=== PATIENT | male | born 1975 | race Caucasian/White ===

== ENCOUNTER → 2021-03-22 16:18 | Outpatient (BNVA) | payer OTHER, SELFPAY | PROVIDERS: Family Provider Family Medicine; PCP Family Medicine Adult Medicine; Visit Provider Otolaryngology | DX: Z20.822 Contact with and (suspected) exposure to COVID-19 (principal) | CPT/HCPCS: 87635 ==

== ENCOUNTER 2021-03-27 09:53 | Day surgery (SDC) | payer OTHER, SELFPAY ==
[2021-03-26 10:48] VITALS: BMI 26.9
[2021-03-27] VITALS (10 sets, daily range): BP systolic 154–177; BP diastolic 89–107; PULSE 60–72; RESP 13–20; TEMP 36.1–36.6; O2SAT 94–97
[2021-03-27] MEDS: sodium chloride 0.9% 1,000 ML 30 ML IV (10:10)
--- NOTE | 2021-03-27 10:14 | W.PM.OPSUD ---
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
--- NOTE | 2021-03-27 10:26 | ANES.PREANE2 ---
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 Proposed Procedure: Operation Date: 03/27/21 11:25 Proposed Procedures p DIRECT LARYNGOSCOPY WITH BIOPSY 17874 J38.3(Not Applicable) - Colton Mayer MD s Excision Mouth Mass/Lesion Biopsy Mouth Mass/Lesion(Not Applicable) - Colton Mayer MD Was Beta Deya taken within 24 hours: N/A Was Clonidine taken within 24 hours: Yes Last intake: Intake Last Liquid Date 03/26/21 Last Liquid Time 19:30 Last Solid Date 03/26/21 Last Solid Time 19:30 Social: Social History: Tobacco and No alcohol Exam: Pre-Anes Outpt Exam: alert, oriented x 3, clear to auscultation bilaterally and regular rate & rhythm Airway: Submandibular: WNL Cervical ROM: WNL MP: 2 Dentition: Chipped Additional comments: Hoarseness Pulmonary: Pulmonary: COPD CV/HEM: CV/HEM: HTN GI: GI: GERD Anesthetic Plan: ASA status: 2 Anesthesia: General Risk of > 500 ml blood loss (7ml/kg in children): No PFSH Anesthesia PFSH: Medical History Decreased glomerular filtration rate (GFR) Hoarseness, chronic HTN (hypertension) Varicose veins of both lower extremities Social History Alcohol intake: never Marital status: Number of children: 3 Number of grandchildren: 7 Current occupational status: employed Data Anesthesia Cardiac Studies: No Data to Display
--- NOTE | 2021-03-27 13:12 | P.OP_ITS ---
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 Narrow bite opening as well. Used mouthguard to protect this remaining dentition. Laryngoscope was too large to fit with his bite opening and his teeth condition. Therefore used a straight blade laryngoscope. This allowed me to see the mass with significant cricoid pressure. Multiple biopsies successfully taken. Other attempts with the glide scope were not successful. Condition: stable Disposition: PACU Brief History: 45-year-old male patient who has been a heavy smoker for many years. Has been hoarse for many months. Flexible laryngoscopy performed in the office revealed a large spherical mass emanating from the anterior half of the left true vocal cord. The patient is brought to the operating room at this time to undergo biopsy of this mass for diagnostic purposes. The procedure risks and complications were explained in detail. These included bleeding infection numbness scarring swelling bruising voice change need for additional treatment potential damage to his poor dentition including loss of tooth or cracked tooth or teeth. More serious risk such as heart attack or stroke or not surviving the surgery were also discussed. Informed consent was granted and witnessed. Procedure: Procedure: The patient was placed on the operating table in the supine position. Adequate general endotracheal tube anesthesia was obtained. Timeout was accomplished identifying the patient date of plan procedure al [facility] fire risk and medications given. With all in agreement the procedure continued. A laryngoscope with anterior commissure lift was utilized initially protecting the upper dentition with a mouthguard. Because of his narrow bite and the poor dentition I was not able to see the anterior aspect of the left vocal cord. Even with firm cricoid pressure I could not see it to do the biopsy. Therefore the rigid laryngoscope was removed and a straight blade laryngoscope from anesthesia was utilized. I could barely see the mass with the scope actually inside his mouth. I was able to remove multiple small pieces of this mass. I wanted to try and remove the bulk of the mass but I could not get around it and in spite of using a glide scope and other attempts I was not able to remove the bulk of the mass. Minor bleeding was encountered but came under control. The mouth was suctioned when we are finished. There was no evidence of damage to any of the dentition. Tooth guard was removed. Throat was suctioned clean. Patient's head was returned to the upright position. Head drape and tape were removed. Patient was then returned to anesthesiology for wake-up and extubation. The patient tolerated the procedure well had an estimated blood loss of 15 mL. He arrived in recovery in stable condition.
[2021-03-27] MEDS: fentaNYL 50 mcg/mL INJ 2mL IVP ×2 (13:38→13:43)
[2021-03-27] MEDS: TRAMadol 50 mg Tablet PO (14:13)
--- NOTE | 2021-03-27 15:39 | ANE.PACU2 ---
Inpatient post-anesthesia follow up: Airway intact: Yes Vital signs: Temperature 98 F Pulse Rate 63 Respiratory Rate 16 Blood Pressure 167/101 Pulse Oximetry 97 Oxygen Delivery Me thod Room Air Oxygen Flow Rate Fraction of Inspir ed Oxygen Hydration adequate: Yes Nausea and vomiting: No Pain level: 2 Mental status: Baseline
== END 2021-03-27 14:35 | disposition home or self-care (01) ==
PROVIDERS: PCP Family Medicine Adult Medicine; Visit Provider Otolaryngology
PROC: 0CJS8ZZ Inspection of Larynx, Via Natural or Artificial Opening Endoscopic (ICD-10-PCS; CPT 31576; principal; 2021-03-27 11:15)
PROC: (CPT 31576; 2021-03-27 11:15)
DX: J38.1 Polyp of vocal cord and larynx (principal); R49.0 Dysphonia; I10 Essential (primary) hypertension
CPT/HCPCS: 31576; 88305; 96365; J0690; J1100; J2405; J2704; J3010; J3490; J7030

== ENCOUNTER 2022-11-07 10:26 | Emergency (ER) | payer OTHER, SELFPAY ==
[2022-11-07 10:38] VITALS: BMI 25.7
[2022-11-07 10:39] VITALS: BP 161/92; PULSE 76; RESP 18; TEMP 36.7; O2SAT 100
--- NOTE | 2022-11-07 11:02 | CTR_ITS ---
PROCEDURE INFORMATION: Exam: CT Abdomen And Pelvis With Contrast Exam date and time: 11/07/2022 12:15 PM Age: 47 years old Clinical indication: Abdominal pain; Additional info: Lower abdominal pain -left inguinal hernia TECHNIQUE: Imaging protocol: Computed tomography of the abdomen and pelvis with contrast. Radiation optimization: All CT scans at this facility use at least one of these dose optimization techniques: automated exposure control; mA and/or kV adjustment per patient size (includes targeted exams where dose is matched to clinical indication); or iterative reconstruction. Contrast material: OMNI 350; Contrast volume: 100 ml; Contrast route: INTRAVENOUS (IV); REPORTING DATA: Count of CT and Cardiac NM exams in prior 12 months: This patient has received 0 known CTs and 0 known cardiac nuclear medicine studies in the 12 months prior to the current study. COMPARISON: CR XR KUB [id number] 07/13/2019 2:15 PM RADIATION DOSE METRICS: Total DLP (mGy-cm): 696.9 FINDINGS: Liver: A minor arterial phase perfusion defect of the hepatic left lobe medial segment is noted adjacent to the falciform ligament fissure, a normal variant. No mass. Gallbladder and bile ducts: Normal. No calcified stones. No ductal dilation. Pancreas: Normal. No ductal dilation. Spleen: Normal. No splenomegaly. Adrenal glands: Normal. No mass. Kidneys and ureters: Normal. No hydronephrosis. Stomach and bowel: Moderate wall thickening of the mid sigmoid colon. Sigmoid colonic diverticula are present without typical appearance of diverticulitis. There is mildly increased stool noted in the ascending and transverse colon. No evidence of bowel obstruction. Appendix: The vermiform appendix is normal. Intraperitoneal space: No free air. No significant fluid collection. Vasculature: Calcified phleboliths are present in the lower pelvis bilaterally. Mild aortic atherosclerotic calcification without aneurysm. Lymph nodes: No enlarged lymph nodes. Urinary bladder: Unremarkable as visualized. Reproductive: Unremarkable as visualized. Bones/joints: L5-S1 degenerative disc disease. Anterior bridging left sacroiliac joint marginal osteophytes. Mild L5-S1 retrolisthesis. L5-S1 spondylosis with bilateral neural foraminal stenosis. Soft tissues: A tiny paraumbilical hernia containing only abdominal fat is noted. Bilateral small indirect inguinal hernias are present containing only intra-abdominal fat. CT/CT abdomen pelvis w con* [id number] IMPRESSION: 1. Moderate wall thickening of the mid sigmoid colon. The finding is consistent with nonspecific colitis. Clinical correlation to determine the specific etiology is recommended. 2. Diverticulosis. 3. Mild abdominal colonic constipation. 4. Bilateral small inguinal hernias.
--- NOTE | 2022-11-07 11:03 | ED_ITS ---
HPI - Skin/Abscess/Foreign Bdy General: Chief complaint: Skin/Abscess/Foreign Body Stated complaint: lump on pubic bone Time Seen by Provider: 11/07/22 10:54 History of Present Illness: Patient is a 47-year-old male comes to the ED with lump around pubic region. He first noticed lump several weeks ago and says it is continued to get larger in size and starting to become more painful. Over the last couple days the lump on the left pubic area has gotten larger and he rates the pain currently an 8 out of 10. He states that sometimes the lump will get a little smaller but it does not completely go away. Denies any fevers, chills, nausea/vomiting, bladder or bowel symptoms. Associated symptoms: Deny chills, fever(s), nausea or vomiting Review of Systems Const: Denies: fever(s), chills or fatigue Eyes: Denies: change in vision or eye discomfort ENMT: Denies: throat pain, odynophagia, nasal discharge or nasal congestion Card: Denies: chest pain, palpitations, edema, swelling of feet/ankles, dyspnea on exertion or orthopnea Resp: Denies: dyspnea, productive cough or non-productive cough GI: Reports: abdominal pain (Left lower pelvis) and other (Tender mass in left groin/pelvic area); Denies: nausea, vomiting, diarrhea, constipation or hematochezia : Denies: flank pain, difficulty urinating, dysuria or hematuria Musc: Denies: neck pain, back pain or extremity swelling Skin/Breast: Denies: rash or new lesions Neuro: Denies: headache(s), numbness in extremities or weakness in extremities PFSH ED PFSH: Medical History Decreased glomerular filtration rate (GFR) Hoarseness, chronic HTN (hypertension) Varicose veins of both lower extremities Social History Alcohol intake: never Marital status: Number of children: 3 Number of grandchildren: 7 Current occupational status: employed Physical Exam Const: COMMON NORMALS: patient oriented x3 HENMT: COMMON NORMALS: normocephalic HEAD & SCALP: normocephalic MOUTH: Normal oral and palatal mucosa present THROAT: posterior oropharynx normal and uvula midline Neck/C-Spine: COMMON NORMALS: supple GENERAL: Yes normal visual inspection Resp: COMMON NORMALS: normal respiratory effort, No retractions, No use of accessory muscles and clear to auscultation bilaterally AUSCULTATION: clear to auscultation bilaterally Cardio: COMMON NORMALS: regular rate, regular rhythm, S1 normal heart sound present, S2 normal heart sound present, No gallops present (Cardio), No clicks present (Cardio), No murmurs present (Cardio) and Peripheral pulses 2+ throughout RATE: regular rate RHYTHM: regular rhythm HEART SOUNDS: S1 normal heart sound present and S2 normal heart sound present PERIPHERAL PULSES: Peripheral pulses 2+ throughout GI: COMMON NORMALS: Normal to inspection, nondistended, normoactive bowel so unds present, Soft to palpation and no masses PALPATION: Yes Soft to palp ation, No Guarding due to palpation present (GI), Yes Hernia present ( tender left inguinal hernia.) and No Rebound tenderness present : COMMON NORMALS: Yes no CVA tenderness BLADDER/KIDNEY EXAM: Yes no CVA tenderness Back/Pelvis: COMMON NORMALS: no CVA tenderness Extremity: COMMON NORMALS: normal to inspection Neuro: COMMON NORMALS: patient oriented x3 GAIT: Yes Normal gait present Skin: GENERAL SKIN EXAM: dry skin Course Vital Signs: Vital signs: Vital Signs Temperature 98.0 F 11/07/22 10:39 Pulse Rate 76 11/07/22 10:39 Respiratory Rate 18 11/07/22 10:39 Blood Pressure 161/92 11/07/22 10:39 Pulse Oximetry 100 11/07/22 10:39 Oxygen Delivery Me thod 11/07/22 10:39 MDM - Skin/Abscess/Foreign Bdy Medicial Decision Making Patient is a 47-year-old male comes to the ED with lump around pubic region. He first noticed lump several weeks ago and says it is continued to get larger in size and starting to become more painful. Over the last couple days the lump on the left pubic area has gotten larger and he rates the pain currently an 8 out of 10. He states that sometimes the lump will get a little smaller but it does not completely go away. Denies any fevers, chills, nausea/vomiting, bladder or bowel symptoms. Vitals are stable. Patient appears nontoxic and in no acute distress. Upon exam patient appears to have a left inguinal hernia that is tender to palpation. Labs are all unremarkable. CT of abdomen pelvis shows signs of colitis and bilateral small inguinal hernias. I placed an order with case management for patient be referred to general surgery for follow-up on i nguinal hernias. He was stable for discharge home. Return ED precautions given. Patient understood agree with plan. Lab Data I reviewed the patient's lab results. 11/07/22 11:15 11/07/22 11:15 Radiology Impressions Abdomen/Pelvis CT 11/07/22 11:02 IMPRESSION: 1. Moderate wall thickening of the mid sigmoid colon. The finding is consistent with nonspecific colitis. Clinical correlation to determine the specific etiology is recommended. 2. Diverticulosis. 3. Mild abdominal colonic constipation. 4. Bilateral small inguinal hernias. Laboratory Results WBC 9.9 10^3/uL (4.0-10.0) 11/07/22 11:15 RBC 6.13 10^6/uL (4.1-5.3) H 11/07/22 11:15 Hgb 16.5 g/dL (11.7-16.6) 11/07/22 11:15 Hct 51.6 % (42.0-52.0) 11/07/22 11:15 MCV 84.2 fl (80-94) 11/07/22 11:15 MCH 26.9 pg (28.0-34.0) L 11/07/22 11:15 MCHC 32.0 g/dL (30.0-36.0) 11/07/22 11:15 RDW 14.0 % (12.1-15.1) 11/07/22 11:15 Plt Count 277 10^3/cmm (130-400) 11/07/22 11:15 MPV 9.6 fL (7.4-10.4) 11/07/22 11:15 Neut % (Auto) 69.7 % 11/07/22 11:15 Lymph % (Auto) 22.0 % 11/07/22 11:15 [place] % (Auto) 5.6 % 11/07/22 11:15 Eos % (Auto) 1.7 % 11/07/22 11:15 Baso % (Auto) 0.8 % 11/07/22 11:15 Neut # (Auto) 6.91 10^3/uL (1.8-7.7) 11/07/22 11:15 Lymph # (Auto) 2.2 10^3/uL (0.8-4.8) 11/07/22 11:15 [place] # (Auto) 0.6 10^3/uL (0.2-0.9) 11/07/22 11:15 Eos # (Auto) 0.2 10^3/uL (0.0-0.8) 11/07/22 11:15 Baso # (Auto) 0.1 10^3/uL (0.0-0.1) 11/07/22 11:15 Nucleated RBC % (auto) 0 % 11/07/22 11:15 Nucleated RBCs # 0.0 /100WBC 11/07/22 11:15 Sodium 140 mmol/L (136-145) 11/07/22 11:15 Potassium 4.3 mmol/L (3.5-5.1) 11/07/22 11:15 Chloride 102 mmol/L (98-107) 11/07/22 11:15 Carbon Dioxide 28 mmol/L (22-29) 11/07/22 11:15 Anion Gap 14.3 (5-19) 11/07/22 11:15 BUN 15 mg/dL (6-20) 11/07/22 11:15 Creatinine 1.1 mg/dL (0.7-1.2) 11/07/22 11:15 GFR Calculation 71.1 mL/min (90-130) L 11/07/22 11:15 Glucose 68 mg/dL (65-115) 11/07/22 11:15 Calculated Osmolality 289 mOsm/kg (285-295) 11/07/22 11:15 Calcium 9.6 mg/dL (8.5-10.5) 11/07/22 11:15 Total Bilirubin 0.5 mg/dL (0.15-1.2) 11/07/22 11:15 AST 66 U/L (0-40) H 11/07/22 11:15 ALT 19 U/L (0-41) 11/07/22 11:15 Alkaline Phosphatase 77 U/L (40-130) 11/07/22 11:15 Total Protein 7.7 g/dL (6.6-8.7) 11/07/22 11:15 Albumin 4.7 g/dL (3.5-5.2) 11/07/22 11:15 Globulin 3.0 g/dL (1.3-4.6) 11/07/22 11:15 Lipase 25 U/L (13-60) 11/07/22 11:15 Discharge Plan Discharge Patient Disposition: Home Clinical Impression: Inguinal hernia Qualifiers: Obstruction and gangrene presence: without obstruction or gangrene Laterality: bilateral Recurrence: not specified as recurrent Qualified Code(s): K40.20 - Bilateral inguinal hernia, without obstruction or gangrene, not specified as recurrent Condition: Stable Prescriptions: No Action ibuprofen 200 mg Tablet 800 mg PO Q6H PRN (Reason: Pain) Discharge Orders: Discharge ED (Routine); Ordered 11/07/22 Ordered By: Laci Sibley Referrals: Raman Alarcon MD [Primary Care Provider] - Discharge Diet: Regular Discharge Activity: Increase activity as tolerated Patient Instructions: Inguinal Hernia (ED) Activity Restrictions/Additional Instructions: Follow-up with medical provider as directed. Case management should be co ntacting you in the next several days to set up an appointment with general surgery for follow-up on inguinal hernias. Take [id number] Tylenol or ibuprofen for any pain. Return to the ER or your medical provider if condition worsens. Please read and understand discharge instructions. Thank you for choosing [facility] for your healthcare needs today. Please realize this is an emergency room and that we are providing you with a medical screening exam and this may not be complete and all inclusive of all the testing and or work up that you may need to determine your ailment or severity of your illness. It is very important that you follow up as instructed or that you return to the Emergency Department should you have concerns or if your condition changes or worsens in any way. Stand Alone Forms: Work/School Release Coding Level of Care Code ED Grievance Coordinator for Emery Bowling
[2022-11-07 11:21] LABS: Basophils # 0.1 10^3/uL (0.0-0.1); Basophils % 0.8 %; Eosinophils # 0.2 10^3/uL (0.0-0.8); Eosinophils % 1.7 %; Hematocrit 51.6 % (42.0-52.0); Hemoglobin 16.5 g/dL (11.7-16.6); Lymphocytes # 2.2 10^3/uL (0.8-4.8); Mean Corpuscular Hemoglobin 26.9 pg (28.0-34.0); Mean Corpuscular Volume 84.2 fl (80-94); Mean Platelet Volume 9.6 fL (7.4-10.4); Monocytes # 0.6 10^3/uL (0.2-0.9); Monocytes % 5.6 %; Neutrophils # 6.91 10^3/uL (1.8-7.7); Neutrophils % 69.7 %; Nucleated Red Blood Cells % 0 %; Platelet Count 277 10^3/cmm (130-400); Red Blood Count 6.13 10^6/uL (4.1-5.3); White Blood Count 9.9 10^3/uL (4.0-10.0)
[2022-11-07 11:42] LABS: Alanine Aminotransferase 19 U/L (0-41); Albumin Level 4.7 g/dL (3.5-5.2); Alkaline Phosphatase 77 U/L (40-130); Anion Gap 14.3 (5-19); Aspartate Amino Transferase 66 U/L (0-40); Blood Urea Nitrogen 15 mg/dL (6-20); Calcium 9.6 mg/dL (8.5-10.5); Carbon Dioxide 28 mmol/L (22-29); Chloride 102 mmol/L (98-107); Glomerular Filtration Rate 71.1 mL/min (90-130); Glucose 68 mg/dL (65-115); Lipase 25 U/L (13-60); Osmolality Calculated 289 mOsm/kg (285-295); Potassium 4.3 mmol/L (3.5-5.1); Sodium 140 mmol/L (136-145); Total Bilirubin 0.5 mg/dL (0.15-1.2); Total Protein 7.7 g/dL (6.6-8.7)
[2022-11-07] MEDS: morphine 4 mg/mL SDV 1 mL IVP (12:03)
[2022-11-07] MEDS: ondansetron 2 mg/ML SDV 2 mL 4 MG IVP (12:03)
[2022-11-07] MEDS: iohexol 350 mg/mL 500 mL Btl (per mL) IV (12:21)
--- NOTE | 2022-11-10 10:55 | DCPLANNER ---
Addendum entered by Dinora Koroma 12/11/22 09:15: Patient had a follow up appointment scheduled with general surgery - patient did attend appointment. Addendum entered by Dinora Koroma 11/11/22 08:21: Patient has a follow up appointment scheduled for Friday, December 09, 2022 at 1:[address] Dorsey at general surgery. Clinic will call patient with appointment information. Original Note: manager spanish had message to schedule a follow up appointment for patient with general surgery. manager spanish sent patients information to the front office staff at general surgery. Patients information will be reviewed. Clinic will call patient with appointment information.
== END 2022-11-07 13:35 | disposition home or self-care (01) ==
PROVIDERS: Emergency Provider Physician Assistant; PCP Family Medicine Adult Medicine
DX: K40.20 Bilateral inguinal hernia, without obstruction or gangrene, not specified as recurrent (principal); I10 Essential (primary) hypertension
CPT/HCPCS: 74177; 80053; 83690; 85025; 96374; 96375; 99285; J2270; J2405; Q9967

== ENCOUNTER 2025-04-25 16:53 | Emergency (ER) | payer OTHER, SELFPAY ==
[2025-04-25 16:59] VITALS: BP 170/115; PULSE 85; RESP 16; TEMP 36.8; O2SAT 100; BMI 23.7
--- NOTE | 2025-04-25 17:15 | W.ED.ABDPA2 ---
HPI - Abdominal Pain General: Chief Complaint: Abdominal Pain Stated Complaint: work comp, R side abd pain Time Seen by Provider: 04/25/25 16:55 History of Present Illness: 49-year-old man who presents emergency room with complaint of a right inguinal hernia. He had a left inguinal hernia repair in the past. He says he was lifting something at work yesterday and the hernia came out. He has been able to put it back in but his come back out a couple of times. He says that his Workmen's Comp. told him to start here at the emergency room. Currently there is nothing protruding in his inguinal area. Related Data Home Medications ?Medication ?Instructions ?Recorded ?Confirmed ibuprofen 200 mg tablet 800 mg PO Q6H PRN Pain 11/07/22 12/09/22 Allergies Allergy/AdvReac Type Severity Reaction Status Date / Time Penicillins Allergy Unknown Verified 12/09/22 13:07 Sulfa (Sulfonamide Allergy ADR-Itching Verified 12/09/22 13:07 Antibiotics) Review of Systems Narrative: Constitutional symptoms: Negative except as documented in HPI. Skin symptoms: Negative except as documented in HPI. Eye symptoms: Negative except as documented in HPI. ENMT symptoms: Negative except as documented in HPI. Respiratory symptoms: Negative except as documented in HPI. Cardiovascular symptoms: Negative except as documented in HPI. Gastrointestinal symptoms: Negative except as documented in HPI. Genitourinary symptoms: Negative except as documented in HPI. Musculoskeletal symptoms: Negative except as documented in HPI. Neurologic symptoms: Negative except as documented in HPI. Psychiatric symptoms: Negative except as documented in HPI. Endocrine symptoms: Negative except as documented in HPI. PFS ED PFSH: Medical History (Updated 04/25/25 @ 17:19 by Ana Romero MD) HTN (hypertension) Varicose veins of both lower extremities Hoarseness, chronic Decreased glomerular filtration rate (GFR) Surgical History History of vocal cord polypectomy Social History Alcohol intake: never Substance/Drug Use: current Substance/Drug use frequency: few times a week Marital status: Number of children: 3 Number of grandchildren: 7 Current occupational status: employed Physical Exam Narrative: EXAM NARRATIVE: General: Alert, no acute distress. Skin: Warm, dry. Head: Normocephalic, atraumatic. Neck: Supple, trachea midline. Eye: Extraocular movements are intact. Ears, nose, mouth and throat: mucosa moist. Cardiovascular: Regular, Normal peripheral perfusion. Respiratory: Lungs are clear to auscultation, respirations are non-labored, breath sounds are equal, Symmetrical chest wall expansion. Gastrointestinal: Soft, Nontender, Non distended. Currently no contents protruding from hernia area. Musculoskeletal: Normal ROM, no deformity. Neurological: Alert and oriented, No focal neurological deficit observed. Psychiatric: Cooperative, appropriate mood & affect. Course Vital Signs: Vital signs: Vital Signs Temperature 98.2 F 04/25/25 16:59 Pulse Rate 85 04/25/25 16:59 Respiratory Rate 16 04/25/25 16:59 Blood Pressure 170/115 04/25/25 16:59 Pulse Oximetry 100 04/25/25 16:59 Oxygen Delivery Me thod Room Air 04/25/25 16:59 MDM - Abdominal Pain Medical Decision Making Assessment and plan: Inguinal hernia ?Hernia is not incarcerated and is currently reduced. Patient will need follow-up with a general surgeon. - Discharged home - Discussed plan with patient. Answered any questions. No radiology studies performed this visit Discharge Plan Discharge Patient Disposition: Home Clinical Impression: Inguinal hernia Condition: Stable Prescriptions: No Action ibuprofen 200 mg Tablet 800 mg PO Q6H PRN (Reason: Pain) Discharge Orders: Discharge ED (Routine); Ordered 04/25/25 Ordered By: Ana Romero Referrals: Sarbjit Montgomery MD [Physician, General Surgery] - 4-7 days Referral Note: Please call for follow-up appointment with general surgery. Either Dr. Cardoso or whoever is recommended by your Workmen's Comp. Discharge Diet: Usual diet Discharge Activity: Increase activity as tolerated Patient Instructions: Inguinal Hernia (ED), Opioid Safety, Pain Management, Patient Portal & Hiro Instructions Activity Restrictions/Additional Instructions: Thank you for choosing [facility] for your healthcare needs today. You have been screened and evaluated and felt safe for discharge. Health conditions do change or evolve sometimes and as such it is important that you follow up with your Primary Doctor to be re checked, 3-5 days is a general good time frame for follow up. You are always welcome to return to the ED for re assessment if your symptoms are worsening or you have new concerns Print Language: Guamanian Coding Level of Care Code ED Elementary School Art Teacher for Emery Bowling
== END 2025-04-25 17:27 | disposition home or self-care (01) ==
PROVIDERS: Emergency Provider Emergency Medicine
DX: K40.90 Unilateral inguinal hernia, without obstruction or gangrene, not specified as recurrent (principal); I10 Essential (primary) hypertension
CPT/HCPCS: 99282

== ENCOUNTER → 2025-06-14 09:42 | Outpatient (BNVA) | payer OTHER, SELFPAY | PROVIDERS: PCP Family Medicine; Visit Provider Family Medicine | DX: Z13.6 Encounter for screening for cardiovascular disorders (principal) | CPT/HCPCS: 80053; 80061; 83036; 84439; 84443; 85025 ==

== ENCOUNTER 2025-06-28 12:30 | Outpatient (CLI) | payer OTHER, SELFPAY ==
--- NOTE | 2025-06-28 13:00 | CT_ITS ---
WS: [id number] LDCT LUNG CANCER SCREENING HISTORY: screening TECHNIQUE: Axial imaging performed from the apices to 1 cm below the costophrenic angles. Coronal and sagittal reformats are submitted with axial MIP series. All CT scans at [facility] use at least one of these dose optimization techniques: automated exposure control; mA and/or kV adjustment per patient size (includes targeted exams where dose is matched to clinical indication); or iterative reconstruction. DLP: 61.61 mGy.cm DIvol: Mean CTDIvol: 1.10 (mGy) COMPARISON: None available. Diagnostic quality: Satisfactory Lungs: Mild pulmonary hyperexpansion. No pulmonary mass or nodule. No endobronchial lesions. Heart: Normal size heart with no pericardial effusion.. Other findings: Very minimal atherosclerosis aorta. Normal size aorta and pulmonary artery. No enlarged lymph nodes. No adrenal mass. CT/CT lung screening 42500 IMPRESSION: LUNG-RADS: 1-Negative FOLLOW UP: 12 Month: Continue annual screening with LDCT OTHER FINDINGS (S MODIFIER): None.
== END 2025-06-28 12:31 | disposition home or self-care (01) ==
LOC: RAD 12:32
PROVIDERS: PCP Family Medicine; Visit Provider Family Medicine
DX: Z12.2 Encounter for screening for malignant neoplasm of respiratory organs (principal); F17.219 Nicotine dependence, cigarettes, with unspecified nicotine-induced disorders; J98.4 Other disorders of lung; I70.0 Atherosclerosis of aorta
CPT/HCPCS: 71271